=== PATIENT | female | born 2000 | race Caucasian/White ===

== ENCOUNTER 2021-01-23 14:16 | Emergency (ER) | payer OTHER ==
[~2021-01-23] VITALS: Ht 160 cm; Wt 60.3 kg
[2021-01-23] MEDS ORDERED: PRENATA CHEWAB1 EACH PO (16:36)
--- OUTSIDE RECORDS SUMMARY | 2021-01-23 20:20 | XMS ---
PreManage Notification: BREEZY NIETO [employer] Events No recent Security Events currently on file CRITERIA MET - [facility] - 2 Visits in 30 Days - [facility] - Has Care Guidelines [facility]ARE PROVID[facility] Current PHONE: [phone] Susan Ramirez Central Supply Aide 07/21/2020-Current PHONE: [phone] Guidelines Source: [facility] Date: 07/21/2020 Care Coordination: Please contact TIP Davis for [employer] assistance [phone] [email or web address] VISIT COUNT (12 MO.) 3 [facility] Vinny Junior [facility] TOTAL 6 NOTE: Visits indicate total known visits. ED/UCC VISIT TRACKING (12 MO.) 01/23/2021 14:17 [place] [place] [facility] [place] TYPE: Emergency COMPLAINT: - R FLANK PAIN 01/19/2021 17:21 [facility] Emergency DIAGNOSES: - Unspecified maternal infectious and parasitic disease complicating , second trimester - COVID-19 - Infections of kidney in , second trimester - BACK PAIN +COVID SCREENING 07/20/2020 09:40 [email or web address] [facility] [place] TYPE: Emergency DIAGNOSES: - SORE THROAT SWELLING - Contact with and (suspected) exposure to covid-19 05/06/2020 22:48 [facility] [place] TYPE: Emergency DIAGNOSES: - abdominal pain - Vaginal Bleed Post Or Miscarriage - Complete or unspecified spontaneous without complication 04/30/2020 20:09 [facility] [place] TYPE: Emergency DIAGNOSES: - Vaginal Bleeding - Vaginal Bleed - Complete or unspecified spontaneous without complication - Vaginal Bledding - Anemia, unspecified 03/19/2020 11:04 [email or web address] [facility] [address] [place] TYPE: Emergency DIAGNOSES: - Other specified related conditions, first trimester - Cystitis, unspecified with hematuria - UTI - Unspecified abdominal pain INPATIENT VISIT TRACKING (12 MO.) No inpatient visits to display in this time frame [email or web address]
== END 2021-01-23 19:58 | disposition home or self-care (01) ==
LOC: ED 14:16
DX: O98.512 Other viral diseases complicating pregnancy, second trimester (principal); U07.1 COVID-19; O99.891 Other specified diseases and conditions complicating pregnancy; R10.9 Unspecified abdominal pain; Z3A.21 21 weeks gestation of pregnancy
CPT/HCPCS: 51701; 76705; 81001; 99284-25